=== PATIENT | female | born 1955 | race Caucasian/White ===

== ENCOUNTER 2017-10-31 15:55 | Emergency (ER) | payer BC ==
--- NOTE | ~2017-10-31 | EKG ---
[place], [place] ELECTROCARDIOGRAM REPORT NAME: SHANI BALDERRAMA UNIT #: [id number] ROOM: DOCTOR: VINNY SULLIVAN,JORDY BIRTHDATE: [birth year] DOS: 10/31/2017 TIME: 1602 hours. IMPRESSION: 1. Sinus rhythm. 2. Left atrial enlargement. 3. Normal QT interval. JORDY CASILLAS MD CM:EKGRPT:ELECTROCARDIOGRAM REPORT [id number] JORDY CASILLAS MD
[2017-10-31] MEDS ORDERED: ZANTAC 7575 M1 PO (16:08)
[2017-10-31] MEDS ORDERED: ZOLOFT100 MG PO (16:08)
[2017-10-31] MEDS ORDERED: Synthroid,Levo88 MCG PO (16:09)
[2017-10-31] MEDS ORDERED: SERTRALINE HYDR50 MG PO (16:10)
[2017-10-31] MEDS ORDERED: LORAZEPAM0.5 MG PO (16:10)
[2017-10-31 16:13] LABS: BASO % 0.3 % (0.0-1.0); EOS # 0.1 10*3/uL (0.0-0.4); EOS % 0.5 % (1.0-4.0); HEMATOCRIT 43.8 % (37.0-47.0); HEMOGLOBIN 14.4 g/dl (12.0-16.0); LYMPH # 2.2 10*3/uL (1.3-4.4); LYMPH % 23.1 % (27.0-41.0); MEAN CELL VOLUME 93.2 fl (81.0-99.0); MEAN CORPUSCULAR HGB 30.6 pg (27.0-31.0); MEAN CORPUSCULAR HGB CONC 32.9 g/dl (33.0-37.0); MEAN PLATELET VOLUME 12.2 fl (9.6-12.3); MONO # 0.4 10*3/uL (0.1-1.0); MONO % 4.1 % (3.0-9.0); NEUT # 6.8 10*3/uL (2.3-7.9); NEUT % 71.8 % (47.0-73.0); PLATELET COUNT AUTOMATED 245 10*3/uL (130-400); WHITE BLOOD COUNT 9.5 10*3/uL (4.8-10.8)
[2017-10-31 16:22] LABS: ACT PARTIAL THROMBO TIME 22.5 SECONDS (20.8-31.5); INTERNATIONAL NORM RATIO 0.9 (2.0-3.5)
[2017-10-31 16:31] LABS: ALKALINE PHOSPHATASE 109 U/L (45-117); BUN 19 mg/dl (7-24); CHLORIDE 104 mmol/L (98-107); CREATININE 1.12 mg/dL (0.55-1.02); POTASSIUM 4.5 mmol/L (3.5-5.1); SGOT/AST 30 IU/L (3-35); SGPT/ALT 22 U/L (12-78); SODIUM 141 mmol/L (136-145); TOTAL PROTEIN 7.6 gm/dL (6.4-8.2)
[2017-10-31 16:34] LABS: TROPONIN I < 0.015 ng/ml (<0.045)
== END 2017-10-31 16:52 | disposition left against medical advice (07) ==
LOC: ED 15:55
PROVIDERS: Student in an Organized Health Care Education/Training Program
DX: R07.89 Other chest pain (principal); F41.9 Anxiety disorder, unspecified; Z53.21 Procedure and treatment not carried out due to patient leaving prior to being seen by health care provider